=== PATIENT | male | born 1965 | race Caucasian/White ===

== ENCOUNTER 2016-12-01 00:40 | Emergency (ER) | payer BC, OTHER ==
[~2016-12-01] VITALS: Ht 175.3 cm; Wt 133.8 kg
[2016-12-01 00:46] VITALS: BP 132/70
--- NOTE | 2016-12-01 02:10 | NUR ---
PT TAKEN TO [facility]
--- NOTE | 2016-12-01 02:14 | NUR ---
Dr. Weber evaluating patient
[2016-12-01] MEDS ORDERED: methylPREDNISolone SS 125 MG in WATER STERILE 2 ML IM ONE (02:20)
[2016-12-01] MEDS ORDERED: MORPHINE SULFATE 10 MG/ML SYR IM ONE (02:20)
--- NOTE | 2016-12-01 02:36 | NUR ---
PT MOVED TO BED 6
--- NOTE | 2016-12-01 02:40 | NUR ---
PT BIB TO ED WITH C/O LEFT ARM PAIN STARTED TODAY 0000 HOURS. PT STATES MED HX OF HTN, RHEUMATOD ARTHRITIS, GOUT AND RIGHT KIDNEY REMOVAL (JUL 2016).PT BIB TO ED WITH C/O LEFT ARM PAIN STARTED TODAY 0000 HOURS. PT STATES MED HX OF HTN, RHEUMATOD ARTHRITIS, GOUT AND RIGHT KIDNEY REMOVAL (JUL 2016). DENIES N/V/D; SKIN IS PINK/WARM/DRY; AAOX4 WITH EVEN AND STEADY GAIT; LUNGS CLEAR BL; HR EVEN AND REGULAR; PT DENIES ANY FEVER, CP, SOB, OR COUGH AT THIS TIME; PATIENT STATES PAIN OF 10/10 AT THIS TIME; VSS; PATIENT POSITIONED FOR COMFORT; HOB ELEVATED; BEDRAILS UP X2; BED DOWN. ER MD MADE AWARE OF PT STATUS.
[2016-12-01] MEDS ORDERED: methylPREDNISolone SS 125 MG/2 ML VIAL ONE (02:42)
--- NOTE | 2016-12-01 04:20 | NUR ---
PT RESTING IN BED. NO SOB NOTED AT THIS TIME. AT BEDSIDE
[2016-12-01] MEDS ORDERED: HYDROmorphone 1 MG/ML AMP IM ONE (04:50)
[2016-12-01 05:40] VITALS: BP 130/72
--- NOTE | 2016-12-01 05:40 | NUR ---
Patient discharged with v/s stable. Written and verbal after care instructions given and explained. Patient alert, oriented and verbalized understanding of instructions. Ambulatory with steady gait. All questions addressed prior to discharge. ID band removed. Patient advised to follow up with PMD. Rx of COLCHICINE, ALLUPUINOL AND NAPROSYN given. Patient educated on indication of medication including possible reaction and side effects. Opportunity to ask questions provided and answered. D/C BY ER MD DR VACA
== END 2016-12-01 05:40 | disposition home or self-care (01) ==
LOC: MED 00:40
DX: M10.9 Gout, unspecified (principal); I10 Essential (primary) hypertension
CPT/HCPCS: 96372; 99284; J1170; J2270; J2930